=== PATIENT | male | born 1960 | race Caucasian/White ===

== ENCOUNTER 2019-08-23 01:30 | Emergency (ER) | payer MEDICAID ==
[2019-08-23] MEDS ORDERED: Diphtheria,Pertussis(Acell),Tetanus Vaccine 0.5 ML SDV IM ONE (01:59)
[2019-08-23] MEDS ORDERED: Bacitracin Oint 1 GM U/D Packet TOP ONE (02:12)
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
== END 2019-08-23 02:35 | disposition home or self-care (01) ==
LOC: JP.ED 01:30
DX: S01.01XA Laceration without foreign body of scalp, initial encounter (principal); F17.210 Nicotine dependence, cigarettes, uncomplicated; Z23 Encounter for immunization; W01.198A Fall on same level from slipping, tripping and stumbling with subsequent striking against other object, initial encounter; Y93.89 Activity, other specified
CPT/HCPCS: 12002; 90471; 90715; 99282-25